=== PATIENT | male | born 1975 | race African-American/Black ===

== ENCOUNTER 2022-05-18 18:22 | Emergency (ER) | payer SELFPAY ==
[~2022-05-18] VITALS: Ht 188 cm; Wt 82.0 kg
[2022-05-18] MEDS ORDERED: FAMOTIDINE 20MG/2ML VIAL IV STA (19:32)
[2022-05-18] MEDS ORDERED: ONDANSETRON HCL 4MG/2ML INJ IV STA (19:32)
[2022-05-18] MEDS ORDERED: SODIUM CHLORIDE 0.9% 1,000 ML IV ONE (19:45)
[2022-05-18 20:02] LABS: BASOPHILS % 0.6 % (0.0-2.0); EOSINOPHILS % 0.2 % (0.0-5.0); HEMATOCRIT. 48.2 % (42.0-52.0); HEMOGLOBIN. 16.1 g/dL (14.0-18.0); LYMPHOCYTES % 17.6 % (20.0-50.0); MEAN CORPUSCULAR HEMOGLOBIN 28.3 pg (28.0-32.0); MEAN CORPUSCULAR VOLUME 84.4 fL (80.0-94.0); MEAN PLATELET VOLUME 7.9 fl (7.4-10.4); MONOCYTES % 10.4 % (2.0-8.0); NEUTROPHILS % 71.2 % (40.0-76.0); PLATELET 166 x1000/uL (130-400); RED BLOOD CELL COUNT 5.71 mill/uL (4.7-6.1)
[2022-05-18 20:09] LABS: CHLORIDE 105 mEq/L (98-107)
[2022-05-18 20:16] LABS: ETHANOL BLOOD 27 mg/dL
[2022-05-18] MEDS ORDERED: FAMO-135 MT (22:10)
[2022-05-18 22:11] VITALS: BP 123/86
== END 2022-05-18 22:27 | disposition home or self-care (01) ==
LOC: ER 18:22
DX: F10.90 Alcohol use, unspecified, uncomplicated (principal); Y90.1 Blood alcohol level of 20-39 mg/100 ml
CPT/HCPCS: 36415; 74176; 80053; 80320; 83690; 85025; 96361; 96374; 96375; 99284; J2405; J3490; J7030; G0480